=== PATIENT | female | born 1950 | race Caucasian/White ===

== ENCOUNTER → 2017-10-18 | Outpatient (CLI) | payer OTHER ==
[~2017-10-18] MED LIST: IOPAMIDOL (ISOVUE-300) 100 ML BTL ONE
== END ==
LOC: FIMAGING 14:34
PROVIDERS: ATTEND Orthopaedic Surgery
DX: I82.431 Acute embolism and thrombosis of right popliteal vein (principal); I82.491 Acute embolism and thrombosis of other specified deep vein of right lower extremity
CPT/HCPCS: Q9967